=== PATIENT | female | born 1965 ===

== ENCOUNTER 2017-05-11 06:59 | Day surgery (SDC) | payer OTHER ==
[~2017-05-11 06:59] MED LIST: FOLIC ACID0.4 MG PO; ONE DAILY FOR1 EACH PO; VITAMIN B-123000 MCG SL; VITAMIN D34000 UNIT PO
== END 2017-05-11 12:55 | disposition home or self-care (01) ==
LOC: AMB-ENDOS 06:59
DX: K57.30 Diverticulosis of large intestine without perforation or abscess without bleeding (principal); K64.8 Other hemorrhoids; K63.89 Other specified diseases of intestine